=== PATIENT | male | born 1955 | race Caucasian/White ===

== ENCOUNTER 2023-04-18 11:59 | Day surgery (SDC) | payer MEDICARE ==
[2023-04-12 11:31] VITALS: BMI 37.3
[~2023-04-18 11:59] MED LIST: FAMOTIDINE 20 MG/2 ML VIAL IV PRN; HYDROmorphone 0.5 MG/0.5 ML SYRINGE IVP PRN; LACTATED RINGERS 1,000 ML IV SCH; LIDOCAINE 1% (10MG/ML) FOR IV START INTRADERMA PRN; ONDANSETRON 4 MG/2 ML VIAL IVP ONE; OXYMETAZOLINE 0.05% NASL SPRAY 1 SPRAY BOTTLE EA NOSTRIL PRN; ceFAZolin 3 GM in SODIUM CHLORIDE 0.9% 100 ML IVPB PRN
[2023-04-18] MEDS ORDERED: SCOPOLAMINE 1 MG/72 HR PATCH TRANSDERM ONE (13:16)
[2023-04-18] MEDS ORDERED: ROCURONIUM 10 MG/ML (5 ML VIAL) IV ONE (13:28)
[2023-04-18] MEDS ORDERED: fentaNYL (PF) 50 MCG/ML 2 ML AMP ONE (13:28)
[2023-04-18] MEDS ORDERED: MIDAZOLAM 2 MG/2 ML VIAL ONE (13:28)
[2023-04-18] MEDS ORDERED: GLYCOPYRROLATE 0.2 MG/ML 2 ML VIAL ONE (13:28)
[2023-04-18] MEDS ORDERED: LIDOCAINE 1% INJ 10MG/ML (20 ML MDV) ONE (13:28)
[2023-04-18] MEDS ORDERED: SUCCINYLCHOLINE CHLORIDE 200 MG/10 ML VIAL IV ONE (13:28)
[2023-04-18] MEDS ORDERED: PROPOFOL 10 MG/ML 20 ML VIAL IV ONE (13:28)
[2023-04-18] MEDS ORDERED: NEOSTIGMINE 1 MG/ML 10 ML VIAL ONE (13:28)
[2023-04-18] MEDS ORDERED: LIDOCAINE 2%-EPI 1:100,000 20 ML VIAL SUBMUCOSAL ONE (13:30)
[2023-04-18] MEDS ORDERED: BACITRACIN ZINC 500 UNIT/GM OINT 28.4 GM TUBE TOPICAL ONE (13:30)
--- NOTE | 2023-04-18 14:19 | P.OP ---
Date of Procedure: 04/18/23 Preoperative Diagnosis: Deviated nasal septum Inferior turbinate hypertrophy Postoperative Diagnosis: Same Procedure(s) Performed: Septoplasty Outfracture and submucous resection inferior turbinates Anesthesia: [facility]ACA Surgeon: Willie Hatfield Estimated Blood Loss (ml): 5 Pathology: other (Nasal septal bone and cartilage) Condition: stable Disposition: PACU Indications for Procedure: This is a 67-year-old white male with chronic nasal airway obstruction bilaterally but mainly on the right which has not improved with medical management Operative Findings: Septum deviated to the right both bony and cartilaginous obstructing approximately 80% nasal airway inferior turbinate hypertrophy bilaterally also moderate Description of Procedure: DESCRIPTION OF PROCEDURE: The patient was brought to the operative suite, placed in the supine position. The patient underwent induction of general anesthesia with oral endotracheal intubation without difficulty. The patient was prepped and draped in the usual aseptic fashion. 2% lidocaine with 1:100,000 epinephrine was infused submucosally on both sides of the nasal septum. While this was taking vasoconstrictive effect, the inferior turbinates were infractured with a Leiter elevator. Partial submucous resection of the inferior turbinates was performed with Coblation device ablating a portion of the submucosal soft tissue. The inferior turbinates were then outfractured with a Leiter elevator. A left hemitransfixion incision was then made through the mucoperichondrial. Mucoperiosteal flap on the left elevated. Bony cartilaginous junction was disarticulated and mucoperiosteal flap on the right was elevated. Bony nasoseptal deformity were removed with Red forceps and an inferior cartilaginous strip was removed, leaving a full 1.5 cm caudal strut. Checking intranasally, this corrected the nasal septal deformities and the hemitransfixion incision was closed with running 4-0 chromic suture. The bilateral Solis airway splints coated in bacitracin ointment were placed in the nasal cavities and sutured transseptally with 4-0 nylon suture. The patient was then suctioned in an orogastric fashion. The patient was allowed to emerge from general anesthesia, having tolerated the procedure well and was extubated in the operating suite, transferred to postoperative recovery area in satisfactory condition.
[2023-04-18 14:37] VITALS: RESP 16; TEMP 97.4
[2023-04-18] MEDS ORDERED: hydrALAZINE HCL 20 MG/ML 1 ML VIAL IVP ONE (15:24)
[2023-04-18] MEDS ORDERED: ONDANSETRON 4 MG/2 ML VIAL IVP ONE (15:50)
[2023-04-18] MEDS ORDERED: ONDANSETRON 4 MG/2 ML VIAL ONE (15:53)
[2023-04-18 16:19] VITALS: BP 173/79; PULSE 58
== END 2023-04-18 16:50 | disposition home or self-care (01) ==
LOC: OR 11:59
PROVIDERS: ATTEND Otolaryngology
DX: J34.3 Hypertrophy of nasal turbinates (principal); J34.2 Deviated nasal septum; F10.90 Alcohol use, unspecified, uncomplicated; F15.90 Other stimulant use, unspecified, uncomplicated; Z88.8 Allergy status to other drugs, medicaments and biological substances
CPT/HCPCS: 88300; 30520; 30802; J2250; J0330; J0360; J2710; J0690; J2405; J2001; J3010; J3490; J2704; J1170

== ENCOUNTER → 2024-11-08 | Outpatient (CLI) | payer MEDICARE ==
[2024-11-08 13:34] LABS: Basophils # (A) 0.05 X 10*3/uL (0.00-0.10); Basophils % (A) 0.6 %; Eosinophils # (A) 0.31 X 10*3/uL (0.04-0.35); Eosinophils % (A) 3.8 %; HCT 43.2 % (39.6-50.0); HGB 13.5 g/dL (13.0-17.0); Lymphocytes % (A) 18.2 %; MCH 28.4 pg (27.0-32.0); MCHC 31.3 g/dL (32.0-37.0); MCV 90.8 FL (80.0-97.0); Mean Platelet Volume 10.7 FL (9.5-12.2); Monocytes # (A) 0.82 X 10*3/uL (0.20-1.00); NRBC Per 100 WBC 0 X 10*3/uL (0.00-0.01); Neutrophils # (A) 5.54 X 10*3/uL (1.80-7.70); Neutrophils % (A) 67.2 %; Platelet Count 229 X 10*3/uL (140-440); RBC 4.76 X 10*6/uL (4.40-5.60); RDW 14.6 % (11.5-14.5); WBC 8.24 X 10*3/uL (4.50-10.00)
[2024-11-08 15:29] LABS: ALT 27 U/L (10-49); AST 29 U/L (14-35); Albumin 4.3 g/dL (3.8-4.9); Albumin/Globulin Ratio 2.05 Ratio (1.60-3.17); Alkaline Phosphatase 61 U/L (41-126); BUN/Creat Ratio 20.11 Ratio (12.00-20.00); Blood Urea Nitrogen 18.1 mg/dL (9.0-27.0); Calcium 9.4 mg/dL (8.7-10.3); Carbon Dioxide 23.2 mmol/L (21.6-31.8); Chloride 104 mmol/L (96-109); Chol/HDL Ratio 2.62 Ratio; Ferritin 30.3 ng/mL (22.0-322.0); Globulin 2.1 g/dL (1.6-3.3); Glucose 88 mg/dL (70-110); Iron 65 UG/DL (65-175); LDL Cholesterol,Calculated 88.8 mg/dL (0.0-131.0); Potassium 4.9 mmol/L (3.5-5.5); Sodium 138 mmol/L (135-145); Total Bilirubin 0.2 mg/dL (0.3-1.2); Total Iron Binding Capacity 508 UG/DL (228-460); Total Protein 6.4 g/dL (6.2-8.2); Uric Acid 3.6 mg/dL (3.7-8.7); VLDL Calculation 12.48 mg/dL (5.00-40.00)
== END | disposition home or self-care (01) ==
LOC: LABWHC1 08:37
PROVIDERS: ATTEND Internal Medicine Geriatric Medicine
DX: R10.84 Generalized abdominal pain (principal); E11.65 Type 2 diabetes mellitus with hyperglycemia; D50.9 Iron deficiency anemia, unspecified; E78.5 Hyperlipidemia, unspecified; M10.9 Gout, unspecified
CPT/HCPCS: 36415; 80053; 80061; 82728; 83036; 83540; 83550; 84550; 85025